=== PATIENT | female | born 1975 ===

== ENCOUNTER 2019-06-16 12:40 | Emergency (ER) | payer OTHER ==
[~2019-06-16] VITALS: Ht 162.6 cm; Wt 61.2 kg
[2019-06-16] MEDS ORDERED: AIRBORNE EFFER1 EACH PO (19:05)
[2019-06-16] MEDS ORDERED: TESSALON PERLE100 M1 PO (19:05)
[2019-06-16] MEDS ORDERED: MUCINEX DM ER1 EAC1 PO (19:05)
== END 2019-06-16 20:29 ==
LOC: ER 12:40
DX: B34.9 Viral infection, unspecified (principal)